=== PATIENT | female | born 2000 | race Caucasian/White ===

== ENCOUNTER 2025-07-15 11:39 | Emergency (ER) | payer OTHER ==
[~2025-07-15] VITALS: Ht 172.7 cm; Wt 67.0 kg
--- NOTE | 2025-07-15 12:04 | RADIOLOGY REPORT ---
X-ray left wrist Technique AP oblique views INDICATION: WRIST PAIN FINDINGS: There is a hairline fracture through the distal radial metaphysis. There is also a chip fracture of the distal ulna. IMPRESSION: 1. Fractures of the distal radius and ulna
--- NOTE | 2025-07-15 12:46 | Physician Documentation ---
History of Present Illness ~ Chief Complaint: Wrist pain Stated Complaint: L WRIST PAIN Time Seen by MD: 12:21 OK to notify your PCP?: Yes Source: patient, [facility] records Exam Limitations: no limitations HPI This is a 25-year-old female who comes in complaining of left wrist pain. The patient states that is she slipped and fell onto an outstretched hand while in the rain. She denies hitting her head or KO. She is not complaining of elbow or shoulder pain. Medication Reconciliation Allergies: Coded Allergies: No Known Allergies (Unverified , 07/15/25) Physical Exam Vital Signs: Temperature: 98.9, Source: Temporal, Heart Rate: 91, Respiratory Rate: 18, BP: 127/83, Pulse Oximetry: 98, Weight: 67.000 Pulse Oximetry Reflects: adequate oxygenation General Appearance: alert, WD/WN, no apparent distress Elbow/Forearm: normal inspection Wrist To inspection of the wrist no obvious edema or deformity. There is tenderness to palpation of the distal radius and ulna without obvious step-off or deformity. The patient has decreased range of motion of the radiocarpal joint with flexion, extension, ulnar, radial deviation secondary to subjective pain. No anatomical snuffbox tenderness. Hand Inspection of the hand itself no obvious trauma. No anatomical snuffbox tenderness. No tenderness to palpation of the carpals, metacarpals or distal phalanges. The patient is able to give a thumbs up and touch her thumb to her small finger. Cap refill less than 2 seconds and brisk in the digits of the left hand. Progress Results/Orders Results/Orders Orders - HARJINDER JEAN Ortho Orders (07/15/25 12:26) Vital Signs 07/15/25 11:46 Temp 98.9 Pulse 91 Resp 18 B/P (MAP) 127/83 Pulse Ox 98 EKG/XRAY/CT/US/VASC/MRI Bone/Soft Tissue X-Ray (Ext.) : Interpreted By: self Additional Comment X-ray left wrist three-view: There was a nondisplaced fracture of the distal radius. There is a small ulnar styloid fracture. No significant soft tissue edema. No malalignment Medical Decision Making Additional information obtaine: N/A Findings X-ray of the left wrist did show a nondisplaced fracture of the left distal radius and ulnar styloid fracture. The patient was placed in a short-arm volar Orthoglass splint and given a sling. She was instructed to ice and elevate the wrist and take ibuprofen or Tylenol for pain. Follow up with the primary care physician for recheck in the next one or two days and return to the ER for any worsening or concerning symptoms. General Diff Dx:Considerations: Include: Abrasion, Contusion, Fracture, Hematoma, Laceration, Malunion, Neurovascular injury, Open fracture, Sprain, Ulcer, Other Shoulder Diff Dx:Consideration: Include: AC separation, Adhesive capsulitis, Arthritis, Bicipital tendonitis, Calcific tendonitis, Cervical disc disease, Contusion, Dislocation, Fracture-humerus, Fracture-scapula, Fracture-clavicle, GB disease, Hematoma, Impingement syndrome, Myocardial infarction, Neurovascular injury, Open fracture-humerus, Open fracture-scapula, Open fracture-clavicle, Rotator cuff injury, SC dislocatoin, Sprain, Subacromial bursitis, Other Elbow Diff Dx:Considerations: Include: Abrasion, Arthritis, Contustion, DJD, Fr acture-humerus, Fracture-radial head, Fracture-radius, Fracture-ulna, Gout, Hematoma, Laceration, Neurovascular injury, Olecranon bursitis, Open fracture, Osteomyelitis, Radial head subluxation, Rheumatoid arthritis, Septic, Sprain, Ulcer, Other Wrist Diff Dx:Considerations: Include: Abrasion, Arthritis, DJD, Gout, Rheumatoid, Septic, Carpal tunnel snydrome, Contusion, Dislocation, Fracture- carpal, Fracture-radius, Fracture-ulna, Ganglion, Laceration, Neurovascular injury, Open fracture, Strain, Other Hand Diff Dx:Considerations: Include: Abrasion, Arthritis, Contusion, DJD, Felon, Fracture-carpal, Fracture-metacarpal, Fracture-phalynx, Fracture-radius, Fracture-ulna, Gout, Hematoma, Herpetic jacinto, Laceration, Neurovascular injury, Open fracture, Paronychia, Rheumatoid arthritis, Septic, Sprain, Subungual hematoma, Tenosynovitis, Volar plate injury, Cellulitis, Malunion, Other Finger Diff Dx:Considerations: Include: Abrasion, Cellulitis, Contusion, Dislocation, Fracture, Hematoma, Laceration, Neurovascular injury, Open fracture, Subungual hematoma, Other Additional Comment Left wrist sprain strain. Left wrist contusion. Left wrist fracture Departure Disposition: HOME / SELF CARE / HOMELESS Impression: Primary Impression: Distal radius fracture, left Additional Impression: Fracture of ulnar styloid Condition: Stable Discharge Instructions: Wrist Fracture Treated With Immobilization Additional Instructions: Keep the splint clean dry and do not remove it. Follow up with the your primary care physician for recheck and referral to an orthopedic surgeon. Elevate the hand frequently and apply cold compresses for 20 minutes every 2 hours for the 1st few days. Ibuprofen or Tylenol for discomfort. Return to the ER for any worsening or concerning symptoms Referrals: NO PRIMARY CARE PROVIDER (PCP) Signature Scribe Signature: No scribe Attestation: The note accurately reflects work and decisions made by me.Harjinder SPENCE 12:46 HARJINDER JEAN Jul 15, 2025 12:46
[2025-07-15 13:56] VITALS: BP 112/78; PULSE 80; RESP 16; TEMP 98.9; O2SAT 99
== END 2025-07-15 13:58 | disposition home or self-care (01) ==
LOC: ER 11:40
DX: S52.592A Other fractures of lower end of left radius, initial encounter for closed fracture (principal); W01.0XXA Fall on same level from slipping, tripping and stumbling without subsequent striking against object, initial encounter; Y93.89 Activity, other specified; Y92.89 Other specified places as the place of occurrence of the external cause; Y99.8 Other external cause status
CPT/HCPCS: 29125; 73110; 99283; A4565; A6446; A6449